=== PATIENT | female | born 1975 | race Caucasian/White ===

== ENCOUNTER 2021-02-19 10:28 | Emergency (ER) | payer SELFPAY ==
[~2021-02-19] VITALS: Ht 157.5 cm; Wt 118.0 kg
[~2021-02-19 10:28] MED LIST: FENT1PAT90 TD; INSU100I13 SQ; SULF-143 PO
--- NOTE | 2021-02-19 10:50 | PHYS DOC ---
Past History Past Medical History: Diabetes Past Surgical History: , Hysterectomy, Tonsillectomy, Other Alcohol Use: Occasionally Drug Use: None Adult General HPI HPI Patient is a 45-year-old female complaining of extremity paresthesias, chest pain and generalized malaise. Reports this is a chronic issue, states it is happen with increased frequency over past 2 weeks to 1 month without any known inciting event, ingestion or major change in health. Nothing known makes better or worse. Patient denying any actual pain, just feeling anxious with occasional electric numbness in all extremities, inability to catch breath at times and feeling more tired and unmotivated than usual. She is well covered in outpatient setting with PCP and has had extensive work-up in the past involving MRI with and without of the head in cardiac testing all of which has been unrem arkable. She reports she is frustrated that she has not gotten answers, stating she will not leave ER today unless she gets answers order will need to be admitted. Here with mother who cites extensive family cardiac history, no personal cardiac history and patient, no history of passing out with activity, no illicit drug use Review of Systems Review of Systems Fourteen body systems of review of systems have been reviewed. See HPI for pertinent positives and negative responses, other tinoco all other systems are negative, non-pertinent or non-contributory Allergies Allergies Allergies Coded Allergies Type Severity Reaction Last Updated Verified No Known Drug Allergies 01/07/16 No Physical Exam Physical Exam Constitutional: Well developed, well nourished, no acute distress, non-toxic appearance. HENT: Normocephalic, atraumatic, bilateral external ears normal, oropharynx moist, no oral exudates, nose normal. Eyes: PERRLA, EOMI, conjunctiva normal, no discharge. Neck: Normal range of motion, no tenderness, supple, no stridor. Cardiovascular: Heart rate regular, sinus rhythm, no murmurs rubs or gallops Lungs & Thorax: Bilateral breath sounds clear to auscultation Abdomen: Bowel sounds normal, soft, no tenderness, no masses, no pulsatile masses. Nonsurgical abdomen, no peritoneal signs Skin: Warm, dry, no erythema, no rash. Back: No tenderness, no CVA tenderness. Extremities: No tenderness, no cyanosis, no clubbing, ROM intact, no edema. Neurologic: Alert and oriented X 3, cranial nerves II through XII intact, negative Romberg, negative [id number], negative Spurling test bilaterally, normal motor & sensory function, no focal deficits noted. Psychologic: Anxious affect and mood Current Patient Data Vital Signs Vital Signs Date Time Temp Pulse Resp B/P (MAP) Pulse Ox O2 Delivery O2 Flow Rate FiO2 02/19/21 11:11 98.1 100 18 176/92 (120) 98 Room Air Vital Signs Date Time Temp Pulse Resp B/P (MAP) Pulse Ox O2 Delivery O2 Flow Rate FiO2 02/19/21 11:11 98.1 100 18 176/92 (120) 98 Room Air Lab Results Laboratory Tests Test 02/19/21 11:02 Glucose (Fingerstick) 237 mg/dL Current Medications Medications (Trade) Dose Ordered Sig/Carlos Route PRN Reason Start Time Stop Time Status Last Admin Dose Admin Aspirin (Sindy Aspirin) 162 mg 1X ONCE PO 02/19/21 11:30 02/19/21 11:35 DC Aspirin (Aspirin Chewable) 162 mg 1X ONCE PO 02/19/21 11:45 02/19/21 11:46 DC 02/19/21 12:02 EKG EKG EKG ordered and interpreted by myself time as sinus rhythm at 91 bpm, unremarkable intervals, T wave inversion in lead I, no STEMI Radiology/Procedures Radiology/Procedures AP chest. HISTORY: Chest pain AP view was taken of the chest. Lungs are clear. Heart is normal in size. There is no pleural effusion. IMPRESSION: 1. No acute chest disease. Electronically signed by: Rc Emery MD (02/19/2021 11:19 AM) [id number] Heart Score C/O Chest Pain: Yes HEART Score for Chest Pain: HEART Score for Chest Pain Response (Comments) Value History Slighlty/Non-Suspicious 0 ECG Normal 0 Age < 45 0 Risk Factors 1 or 2 Risk Factors 1 Troponin < Normal Limit 0 Total 1 Risk Factors: Risk Factors: DM, Current or recent (<one month) smoker, HTN, HLP, family history of CAD, obesity. Risk Scores: Risk Factors: DM, Current or recent (<one month) smoker, HTN, HLP, family history of CAD, obesity. Course & Med Decision Making Course & Med Decision Making Discussed with the patient all findings and diagnostic testing. I discussed most likely diagnosis of anxiety about health versus noncardiac chest pain versus other likely not emergent/surgical pathology. I did disclose this might be an acute presentation of more concerning pathology but given duration of symptoms, this is unlikely. I reviewed heart and PERC score with patient, joint decision to defer any further diagnostic work-up in ER setting, patient understands there is no obvious need for admission to the hospital at present. As such, I stressed need for close outpatient follow-up to review today's ER visit. Strict return precautions were also discussed at length with good understanding by patient. Patient voiced understanding and agreement with the plan. Patient knows to come back for repeat evaluation if concerning signs or symptoms present prior to outpatient follow-up. Hemodynamically stable, ambulatory and well-appearing at time of disposition. Dragon Disclaimer Dragon Disclaimer This electronic medical record was generated, in whole or in part, using a voice recognition dictation system. PERC Rule for PE PERC Rule for PE Response (Comments) Value Age > 50: No 0 HR > 100: No 0 Sa02 on room air <95%: No 0 Unilateral leg swelling: No 0 Hemoptysis: No 0 Recent surgery or trauma: No 0 Prior PE or DVT: No 0 Hormone use: No 0 Total 0 Departure Departure: Impression: Primary Impression: Chest pain Additional Impression: Paresthesia and pain of both upper extremities Disposition: HOME / SELF CARE / HOMELESS Condition: STABLE Referrals: SOY YOUNG MD (PCP) Additional Instructions: You were seen for chest pain and paresthesias. Your workup did not show any acute abnormalities today, but does not indicate that you do not have underlying cardiovascular disease or other concerning neurologic abnormalities. You do need to follow up with your primary doctor and as discussed, would be beneficial for you to see a neurologist and continue outpatient work-up with your communicable disease specialist for bilateral upper extremities. You should return to the ED if you develop worsening chest pain, shortness of breath, fever, abnormal sweating, leg swelling, or any other new or concerning symptoms. It was a pleasure to take care of you and I wish you the best going forward Problem Qualifiers PAMELA WASHINGTON DO Feb 19, 2021 10:50
--- NOTE | 2021-02-19 11:05 | EKG ---
[address] [address] Test Date: 2021-02-19 Test Time: 10:41:43 Pat Name: JASON RECINOS Department: Room: Gender: F Counsel: EDUARDO : 1975 Requested By: PAMELA WASHINGTON Order Number: [id number] Reading MD: Measurements Intervals [place] Rate: 91 P: 34 IA: 152 QRS: 38 QRSD: 76 T: 142 QT: 344 QTc: 425 Interpretive Statements SINUS RHYTHM R-S TRANSITION ZONE IN V LEADS DISPLACED TO THE LEFT T ABNORMALITY IN HIGH LATERAL LEADS ABNORMAL ECG RI6.02 No previous ECG available for comparison
[2021-02-19 11:11] VITALS: BP 176/92
--- NOTE | 2021-02-19 11:22 | RAD ---
AP chest. HISTORY: Chest pain AP view was taken of the chest. Lungs are clear. Heart is normal in size. There is no pleural effusio n. IMPRESSION: 1. No acute chest disease. Electronically signed by: Rc Emery MD (02/19/2021 11:19 AM) [id number]
[2021-02-19] MEDS ORDERED: ASPIRIN 325 MG TABLET PO ONE (11:30)
[2021-02-19 11:38] LABS: BASO % 1 % (0-3); EOS # 0.2 x10^3/uL (0.0-0.7); EOS % 2 % (0-3); HEMATOCRIT 41.5 % (36.0-47.0); HEMOGLOBIN 14.3 g/dL (12.0-15.5); LYMPH % 34 % (24-48); MEAN CORPUSCULAR HEMOGLOBIN 29 pg (25-35); MEAN CORPUSCULAR HGB CONC 35 g/dL (31-37); MEAN CORPUSCULAR VOLUME 84 fL (79-100); MONO # 0.5 x10^3/uL (0.0-1.1); MONO % 6 % (0-9); NEUT # 5.2 x10^3uL (1.8-7.7); NEUT % 58 % (31-73); PLATELET COUNT 278 x10^3/uL (140-400); RED BLOOD COUNT 4.92 x10^6/uL (3.50-5.40); RED CELL DISTRIBUTION WIDTH 13.8 % (11.5-14.5)
[2021-02-19] MEDS ORDERED: ASPIRIN CHEWABLE 81 MG TABLET. PO ONE (11:45)
[2021-02-19 11:47] LABS: CALCIUM 8.9 mg/dL (8.5-10.1); CREATININE 0.7 mg/dL (0.6-1.0); GFR 90.5; POTASSIUM 4.3 mmol/L (3.5-5.1)
[2021-02-19 11:54] LABS: ALBUMIN 3.3 g/dL (3.4-5.0); TOTAL BILIRUBIN 0.3 mg/dL (0.2-1.0); TOTAL PROTEIN 6.7 g/dL (6.4-8.2)
== END 2021-02-19 12:10 | disposition home or self-care (01) ==
LOC: ER 10:28
DX: R07.89 Other chest pain (principal); R20.2 Paresthesia of skin; E11.9 Type 2 diabetes mellitus without complications; Z90.710 Acquired absence of both cervix and uterus
CPT/HCPCS: 36415; 71045; 80053; 82947; 84484; 85025; 93005; 99285-25

== ENCOUNTER 2021-03-10 18:27 | Emergency (ER) | payer SELFPAY ==
[~2021-03-10] VITALS: Ht 160 cm; Wt 98.0 kg
[2021-03-10] MEDS ORDERED: IOHEXOL 300 MG/ML 75 ML VIAL. IV ONE (19:15)
[2021-03-10 19:22] LABS: BASO # 0.1 x10^3/uL (0.0-0.2); BASO % 1 % (0-3); EOS # 0.2 x10^3/uL (0.0-0.7); EOS % 1 % (0-3); HEMOGLOBIN 14.6 g/dL (12.0-15.5); LYMPH # 3.6 x10^3/uL (1.0-4.8); LYMPH % 23 % (24-48); MEAN CORPUSCULAR HEMOGLOBIN 29 pg (25-35); MEAN CORPUSCULAR HGB CONC 34 g/dL (31-37); MEAN CORPUSCULAR VOLUME 85 fL (79-100); MONO % 7 % (0-9); NEUT # 10.4 x10^3uL (1.8-7.7); NEUT % 68 % (31-73); PLATELET COUNT 254 x10^3/uL (140-400); RED BLOOD COUNT 5.08 x10^6/uL (3.50-5.40); RED CELL DISTRIBUTION WIDTH 13.8 % (11.5-14.5); WHITE BLOOD COUNT 15.3 x10^3/uL (4.0-11.0)
[2021-03-10 19:46] LABS: CALCIUM 9.3 mg/dL (8.5-10.1); CREATININE 0.7 mg/dL (0.6-1.0); GFR 90.5
[2021-03-10 19:52] LABS: ALBUMIN 3.4 g/dL (3.4-5.0); DIRECT BILIRUBIN 0.1 mg/dL (0.0-0.2); MAGNESIUM 1.6 mg/dL (1.8-2.4); PHOSPHORUS 4.2 mg/dL (2.6-4.7); TOTAL BILIRUBIN 0.4 mg/dL (0.2-1.0); TOTAL PROTEIN 6.8 g/dL (6.4-8.2)
[2021-03-10] MEDS ORDERED: INSULIN REGULAR 100 UNIT/ML 3ML VIAL. IV ONE (20:00)
[2021-03-10 20:11] LABS: % EOS 1 % (0-5); % LYMPHS 20 % (24-48); % MONOS 6 % (0-10); % SEGS 73 % (35-66)
[2021-03-10 20:12] LABS: PLT ESTIMATE ADEQUATE (ADEQUATE)
--- NOTE | 2021-03-10 20:34 | PHYS DOC ---
Past History Past Medical History: Diabetes (DES MAHONEY APRN) Past Surgical History: Hysterectomy (DES MAHONEY APRN) Alcohol Use: None Drug Use: None (DES MAHONEY APRN) Adult General Chief Complaint Chief Complaint: NEURO SYMPTOMS/DEFICITS HPI HPI Patient is a 45-year-old female who presents to the emergency department with chief complaint of off-and-on slurred speech, off and on ear pains the left more than the right, and off-and-on tremors for the past several months. Patient states when her tremor episodes happen it feels as if her throat is closing off. Patient states that it was recommended she see a neurologist however states she does not have insurance so she cannot afford to see a neurologist. Patient states that she seen her primary care provider yesterday and labs were drawn and she was told that everything looked okay however labs were pending focusing on an endocrine disorder. Patient reports taking Cymbalta and gabapentin at home, reports she takes NovoLog at each meal and Lantus twice a day. Patient reports her blood sugar prior to arrival was 283. Patient reports that her neurological symptoms seem to be getting worse as the time passes. Patient denies chest pains, shortness of breath, chest pains, abdominal pain, rashes of her skin, increased thirst or increased urination, denies any trauma. Patient denies recent fever or chills. (DES MAHONEY APRN) Review of Systems Review of Systems 14 body systems of review of systems have been reviewed. See HPI for pertinent positives and negative responses, otherwise all other systems are negative, nonpertinent or noncontributory. (DES MAHONEY APRN) Current Medications Current Medications Current Medications Medications (Trade) Dose Ordered Sig/Carlos Start Time Stop Time Status Last Admin Dose Admin Insulin Human Regular (HumuLIN R VIAL) 10 unit 1X ONCE 03/10/21 20:00 03/10/21 20:17 DC 03/10/21 20:23 10 UNIT Iohexol (Omnipaque 300 Mg/ml) 75 ml 1X ONCE 03/10/21 19:15 03/10/21 19:22 DC 03/10/21 20:19 75 ML Lorazepam (Ativan Inj) 1 mg 1X ONCE 03/10/21 19:15 03/10/21 19:22 DC 03/10/21 19:16 1 MG (DES MAHONEY APRN) Allergies Allergies Allergies Coded Allergies Type Severity Reaction Last Updated Verified No Known Drug Allergies 01/07/16 No (DES MAHONEY APRN) Physical Exam Physical Exam Constitutional: Well developed, well nourished, no acute distress, non-toxic appearance. 45-year-old female having tremor-like movements during physical exam. HENT: Normocephalic, atraumatic, bilateral external ears normal, oropharynx moist, no oral exudates, nose normal. Bilateral TMs intact with scarring. No drooling, no trismus. No lymphadenopathy of the head or neck appreciated. Eyes: PERRLA, EOMI, conjunctiva normal, no discharge. Pupils 3 mm. Neck: Normal range of motion, no tenderness, supple, no stridor. No nuchal rigidity. Cardiovascular:Heart rate regular rhythm, no murmur, heart sounds S1-S2 consultation. Lungs & Thorax: Bilateral breath sounds clear to auscultation, no adventitious lung sounds appreciated. Abdomen: Bowel sounds normal, soft, no tenderness, no masses, no pulsatile masses. Skin: Warm, dry, no erythema, no rash. Back: No tenderness, no CVA tenderness. Extremities: No tenderness, no cyanosis, no clubbing, ROM intact, no edema. Neurologic: Alert and oriented X 3, normal motor function, normal sensory function, no focal deficits noted. Patient having intermittent rhythmic tremors with changes to jerking type motion of upper extremities, no tremors or abnormal jerking motion of lower extremities. Cerebellar exam intact Psychologic: Affect normal, judgement normal, mood normal. (DES MAHONEY APRN) Current Patient Data Vital Signs Vital Signs Date Time Temp Pulse Resp B/P (MAP) Pulse Ox O2 Delivery O2 Flow Rate FiO2 03/10/21 19:14 96 18 153/96 (115) Room Air 03/10/21 18:31 98.9 97 Lab Results Laboratory Tests Test 03/10/21 18:45 03/10/21 19:20 White Blood Count 15.3 x10^3/uL (4.0-11.0) H Red Blood Count 5.08 x10^6/uL (3.50-5.40) Hemoglobin 14.6 g/dL (12.0-15.5) Hematocrit 43.0 % (36.0-47.0) Mean Corpuscular Volume 85 fL (79-100) Mean Corpuscular Hemoglobin 29 pg (25-35) Mean Corpuscular Hemoglobin Concent 34 g/dL (31-37) Red Cell Distribution Width 13.8 % (11.5-14.5) Platelet Count 254 x10^3/uL (140-400) Neutrophils (%) (Auto) 68 % (31-73) Lymphocytes (%) (Auto) 23 % (24-48) L Monocytes (%) (Auto) 7 % (0-9) Eosinophils (%) (Auto) 1 % (0-3) Basophils (%) (Auto) 1 % (0-3) Neutrophils # (Auto) 10.4 x10^3uL (1.8-7.7) H Lymphocytes # (Auto) 3.6 x10^3/uL (1.0-4.8) Monocytes # (Auto) 1.0 x10^3/uL (0.0-1.1) Eosinophils # (Auto) 0.2 x10^3/uL (0.0-0.7) Basophils # (Auto) 0.1 x10^3/uL (0.0-0.2) Segmented Neutrophils % 73 % (35-66) H Lymphocytes % 20 % (24-48) L Monocytes % 6 % (0-10) Eosinophils % 1 % (0-5) Platelet Estimate Adequate (ADEQUATE) Lactic Acid Level 1.4 mmol/L (0.4-2.0) Sodium Level 136 mmol/L (136-145) Potassium Level 4.0 mmol/L (3.5-5.1) Chloride Level 102 mmol/L (98-107) Carbon Dioxide Level 25 mmol/L (21-32) Anion Gap 9 (6-14) Blood Urea Nitrogen 15 mg/dL (7-20) Creatinine 0.7 mg/dL (0.6-1.0) Estimated GFR (Cockcroft-Gault) 90.5 BUN/Creatinine Ratio 21 (6-20) H Glucose Level 305 mg/dL (70-99) H Calcium Level 9.3 mg/dL (8.5-10.1) Phosphorus Level 4.2 mg/dL (2.6-4.7) Magnesium Level 1.6 mg/dL (1.8-2.4) L Total Bilirubin 0.4 mg/dL (0.2-1.0) Direct Bilirubin 0.1 mg/dL (0.0-0.2) Aspartate Amino Transferase (AST) 13 U/L (15-37) L Alanine Aminotransferase (ALT) 21 U/L (14-59) Alkaline Phosphatase 137 U/L (46-116) H Total Protein 6.8 g/dL (6.4-8.2) Albumin 3.4 g/dL (3.4-5.0) Albumin/Globulin Ratio 1.0 (1.0-1.7) Acetone Level Neg (NEG) (DES MAHONEY APRN) EKG EKG [] (DES MAHONEY APRN) Radiology/Procedures Radiology/Procedures PATIENT: JASON RECINOS EACCOUNT: [id number] : 1975 LOCATION: ER AGE: 45 SEX: F EXAM STATUS: REG ER ORD. PHYSICIAN: DES MAHONEY APRN REASON: OMNI 300, 75ML IV. Sensation of throat swelling PROCEDURE: CT SOFT TISSUE NECK W/CONTRAST EXAM: 1. CT HEAD WITHOUT CONTRAST. 2. CT NECK SOFT TISSUES WITH CONTRAST. HISTORY: Tremors, throat swelling. TECHNIQUE: Computed tomography of the head was performed without intravenous contrast. CT of the neck soft tissues was performed after the intravenous administration of iodinated contrast. One or more of the following individualized dose reduction techniques were utilized for this examination: 1. Automated exposure control. 2. Adjustment of the mA and/or kV according to patient size. 3. Use of iterative reconstruction technique. COMPARISON: None. FINDINGS: There is no intracranial hemorrhage. King-white differentiation is preserved. The ventricles are normal in size and position. There are small mucus retention cysts in both maxillary sinuses. The orbits are unremarkable. The temporal bones are unremarkable. The calvarium reveals no suspicious lesions. Limited images of the lung apices reveal no abnormality. The aortic arch is not included. Bone windows reveal no suspicious lesions. There is mild to moderate central canal stenosis at C5-C7. The parotid glands, submandibular glands and thyroid gland are unremarkable. There are no pathologically enlarged lymph nodes. There are no laryngeal or pharyngeal masses or edema. There is no retropharyngeal or parapharyngeal collection. IMPRESSION: 1. No acute intracranial findings. 2. No neck soft tissue collection or edema. Electronically signed by: Tammy Griffiths MD (03/10/2021 8:41 PM) [id number] DICTATED AND SIGNED BY: NEYMAR GRIFFITHS MD DATE: 03/10/212035 CC: DES MAHONEY APRN; MAYLIN ACUNA; DES VARGAS DO ~MTH0 0 (DES MAHONEY APRN) Heart Score C/O Chest Pain: No Risk Factors: Risk Factors: DM, Current or recent (<one month) smoker, HTN, HLP, family history of CAD, obesity. Risk Scores: Risk Factors: DM, Current or recent (<one month) smoker, HTN, HLP, family history of CAD, obesity. (DES MAHONEY APRN) Course & Med Decision Making Course & Med Decision Making Pertinent Labs and Imaging studies reviewed. (See chart for details) 45-year-old female, vital signs reviewed, presents emergency department with concerns of tremors and slurred speech have been going on and off for several months. Patient states she was a seen yesterday by her primary care provider and was told to come to the emergency department if symptoms return. Physical examination concerning for neurological symptoms with a psychiatric component, patient did not make direct eye contact during physical examination, when attempted to move in front of patient's line of sight, patient would move eyes out of line of sight.. A CT head and soft tissue neck were ordered related to patient's chief complaints, labs were ordered. IV normal saline, 1 mg IV Ativan was given. Upon reevaluation of the patient, patient states that the Ativan helped her and her symptoms have resolved. The patient is no longer having any concerning neurological symptoms. We will await CT and lab results. The patient's white blood cell count is elevated. Upon reexamination of the patient discussing elevated white blood cell count, patient reveals that she does have an abscess near her vagina. Upon evaluation with female ED nurse, patient has fluctuant abscess on left side of mons pubis with central punctum, nondraining. See I&D note. Patient reports her last tetanus immunization was less than [address] unremarkable, patient's lab work unremarkable except for elevated white blood cell count most likely related to abscess. Will treat p.o. anti biotics Bactrim DS p.o. twice daily x7 days. Will give first dose in ER prior to discharge. Discussed with patient will prescribe 1/2 mg Ativan tablets to take up to 3 times a day as needed for returning of neurological symptoms. Strict follow-up precautions with primary care this week. Patient gave verbal understanding of discharge home instructions, strict follow- up with primary care, abscess care, packing care, return to ER precautions or concerns, patient was thankful and states she feels much better now and wishes to go home, patient was discharged home without incident. (DES MAHONEY APRN) Dragon Disclaimer Dragon Disclaimer This electronic medical record was generated, in whole or in part, using a voice recognition dictation system. (DES MAHONEY APRN) Incision and Drainage Indication: Abscess left side mons pubis Procedure: The patient was positioned appropriately and the skin over the incision site was prepped with povidone iodine. Local anesthesia was achieved with 3 cc 2% lidocaine without epinephrine. An incision was then made over the central punctum of abscess and approximately 3 cc of purulent material was expressed. Loculations were disrupted with forceps. The drainage cavity was then vigorously irrigated with 500 cc normal saline. The patients tetanus status up-to-date prior to today's visit in the emergency department, tetanus immunization not indicated. The abscess cavity was then packed with 1/4 inch packing gauze. The patient tolerated the procedure well. Complications: There were no complications. (DES MAHONEY APRN) Departure Departure: Impression: Primary Impression: Occasional tremors Additional Impression: Abscess Disposition: 01 HOME / SELF CARE / HOMELESS Condition: GOOD Referrals: MAYLIN ACUNA (PCP) Patient Instructions: Abscess Additional Instructions: You were seen today in the emergency department for extremity tremors and other neurological symptoms that resolved during your stay in the ER. You were given Ativan intravenously while you were here in the emergency department to help treat your symptoms, you had stated that this medication helped you tremendously. Your symptoms resolved spontaneously after this medication was given, however a CT of your head and neck were completed, these images were read by a radiologist who did not find any concerning findings. You did reveal that you had an abscess, this was drained in the emergency department today, you were started on an oral antibiotic that you will take twice a day for 7 days. I am also starting you on a low-dose of Ativan tablets to take if your neurological symptoms start to return. It is imperative that you follow-up with your primary care provider this week for reevaluation and to let them know if the Ativan tablets are working. As your primary care provider recommended, please secure an appointment with a neurologist soon. Please return to the emergency department for worsening symptoms or other concerns. EMERGENCY DEPARTMENT GENERAL DISCHARGE INSTRUCTIONS Thank you for coming to [facility] (ED) today and trusting us with you care. We trust that you had a positivie experience in our Emergency Department. If you wish to speak to the department management, you may call the director at [phone]. YOUR FOLLOW UP INSTRUCTIONS ARE FOLLOWS: 1. Do you have a private Doctor? If you do not have a private doctor, please ask for a resource list of physicians or clinics that may be able to assist you with follow up care. 2. The Emergency Physician has interpreted your x-rays. The X-Ray specialist will also review them. If there is a change in the findings, you will be notified in 48 hours when at all possible. 3. A lab test or culture has been done, your results will be reviewed and you will be notified if you need a change in treatment. ADDITIONAL INSTRUCTIONS AND INFORMATION: 1. Your care today has been supervised by a physician who is specially trained in emergency care. Many problems require more than one evaluation for a complete diagnosis and treatment. We recommend that you schedule your follow up appointment as recommended to ensure complete treatment of you illness or injury. If you are unable to obtain follow up care and continue to have a problem, or if your condition worsens, we recommend that you return to the ED. 2. We are not able to safely determine your condition over the phone nor are we able to give sound medical advice over the phone. For these safety reasons, if you call for medical advice we will ask you to come to the ED for further evaluation. 3. If you have any questions regarding these discharge instructions please call the ED at [phone]. SAFETY INFORMATION: In the interest of safety, wellness, and injury prevention; we encourage you to wear your sealbelt, if you smoke; quite smoking, and we encourage family to use a protective helmet for bicycling and other sporting events that present an increased risk for head injury. IF YOUR SYMPTOMS WORSEN OR NEW SYMPTOMS DEVELOP, OR YOU HAVE CONCERNS ABOUT YOUR CONDITION; OR IF YOUR CONDITION WORSENS WHILE YOU ARE WAITING FOR YOUR FOLLOW UP APPOINTMENT; EITHER CONTACT YOUR PRIMARY CARE DOCTOR, THE PHYSICIAN WHOSE NAME AND NUMBER YOU WERE GIVEN, OR RETURN TO THE ED IMMEDIATELY. Scripts Lorazepam (ATIVAN ) 0.5 Mg Tablet 0.5 MG PO PRN TID PRN for ANXIETY, #10 TAB 0 Refills Prov: DES MAHONEY APRN 03/10/21 Sulfamethoxazole/Trimethoprim (BACTRIM DS TABLET) 1 Each Tablet 1 TAB PO BID for skin infection for 7 Days, #14 TAB 0 Refills Prov: DES MAHONEY APRN 03/10/21 Attending Signature Attending Signature I have reviewed the PA/MEDICAL MANAGER's note and plan of care. I was available for consultation as needed during the patient's visit in the emergency department. I agree with the clinical impression, plan, and disposition. (DES VARGAS DO) Problem Qualifiers DES MAHONEY APRN Mar 10, 2021 20:34 DES VARGAS DO Mar 10, 2021 23:45
--- NOTE | 2021-03-10 20:43 | RAD ---
EXAM: 1. CT HEAD WITHOUT CONTRAST. 2. CT NECK SOFT TISSUES WITH CONTRAST. HISTORY: Tremors, throat swelling. TECHNIQUE: Computed tomography of the head was performed without intravenous contrast. CT of the neck soft tissues was performed after the intravenous administration of iodinated contrast. One or more o f the following individualized dose reduction techniques were utilized for this examination: 1. Automated exposure control. 2. Adjustment of the mA and/or kV according to patient size. 3. Use of iterative reconstruction technique. COMPARISON: None. FINDINGS: There is no intracranial hemorrhage. King-white differentiation is preserved. The ventricle s are normal in size and position. There are small mucus retention cysts in both maxillary sinuses. The orbits are unremarkable. The tem poral bones are unremarkable. The calvarium reveals no suspicious lesions. Limited images of the lung apices reveal no abnormality. The aortic arch is not included. Bone window s reveal no suspicious lesions. There is mild to moderate central canal stenosis at C5-C7. The parotid glands, submandibular glands and thyroid gland are unremarkable. There are no pathologica lly enlarged lymph nodes. There are no laryngeal or pharyngeal masses or edema. There is no retropharyngeal or parapharyngeal c ollection. IMPRESSION: 1. No acute intracranial findings. 2. No neck soft tissue collection or edema. Electronically signed by: Tammy Griffiths MD (03/10/2021 8:41 PM) JOSH
[2021-03-10] MEDS ORDERED: LIDOCAINE 2% 20 ML VIAL. IJ ONE (20:45)
[2021-03-10 21:20] LABS: BACTERIA,URINE 0 /HPF (0-FEW); BILIRUBIN,URINE NEG (NEG); CLARITY,URINE CLEAR; COLOR,URINE YELLOW; GLUCOSE,URINE >=1000 mg/dL (NEG); NITRITE,URINE NEG (NEG); RBC,URINE 0 /HPF (0-2); SQUAMOUS EPITHELIAL CELL,UR MOD /LPF; UROBILINOGEN,URINE 0.2 mg/dL (0.2 mg/dL); WBC,URINE OCC /HPF (0-4)
[2021-03-10] MEDS ORDERED: SULF1TAB24 PO (21:43)
[2021-03-10] MEDS ORDERED: LORA0.5T21 PO (21:43)
[2021-03-10 21:44] VITALS: BP 121/84
[2021-03-10] MEDS ORDERED: SMZ/TMP 800/160MG TABLET. PO ONE (22:00)
== END 2021-03-10 21:57 | disposition home or self-care (01) ==
LOC: ER 18:27
DX: L02.215 Cutaneous abscess of perineum (principal); G25.2 Other specified forms of tremor; H92.02 Otalgia, left ear; E11.9 Type 2 diabetes mellitus without complications
CPT/HCPCS: 36415; 56405; 70450; 70491; 80053; 80076; 81001; 82010; 83605; 83735; 84100; 84443; 85007; 85025; 87040; 87070; 96374; 96375; 99285; J1815; J2060; Q9967

== ENCOUNTER 2022-01-25 10:31 | Emergency (ER) | payer MEDICAID ==
[~2022-01-25] VITALS: Ht 160 cm; Wt 112.8 kg
[~2022-01-25 10:31] MED LIST changes: +LORA0.5T21 PO; +SULF1TAB24 PO
[2022-01-25] MEDS ORDERED: MIDAZOLAM HCL PF 5 MG/5 ML VIAL. ONE (10:45)
--- NOTE | 2022-01-25 10:56 | PHYS DOC ---
Past History Past Medical History: Diabetes Additional Past Medical Histor: unable to assess Past Surgical History: Hysterectomy, Other Additional Past Surgical Histo: Unable to fully assess Alcohol Use: None Drug Use: None Adult General Chief Complaint Chief Complaint: ALTERED MENTAL STATUS HPI HPI Patient is a 46 year old female who presents for evaluation of altered mental status. Family brought patient to the emergency department due to concern for seizure. Symptoms started shortly prior to arrival. Patient reportedly has history of seizure disorder and is on daily Valium. Patient unable to provide any history at this time as she is moaning and writhing in the emergency cot. Further information limited at this time. No reported injuries or fall. Review of Systems Review of Systems Unable to assess due to altered mental status and patient providing no verbal responses. All other systems were reviewed and found to be within normal limits, except as documented in this note. Current Medications Current Medications Current Medications Medications (Trade) Dose Ordered Sig/Carlos Start Time Stop Time Status Last Admin Dose Admin Midazolam HCl (Versed) 5 mg STK-MED ONCE 01/25/22 10:45 01/25/22 10:46 DC Allergies Allergies Allergies Coded Allergies Type Severity Reaction Last Updated Verified No Known Drug Allergies 01/07/16 No Physical Exam Physical Exam Constitutional: Patient moaning and writhing in bed, opens eyes to voice, no verbal responses, afebrile. [] HENT: Normocephalic, atraumatic, bilateral external ears normal, oropharynx moist, no oral exudates, nose normal. [] Eyes: PERRLA, EOMI, conjunctiva normal, no discharge. [] Neck: Normal range of motion, no tenderness, supple, no stridor. [] Cardiovascular:Heart rate regular rhythm, no murmur [] Lungs & Thorax: Bilateral breath sounds clear to auscultation [] Abdomen: Bowel sounds normal, soft, no tenderness, no masses, no pulsatile masses. [] Skin: Warm, dry, no erythema, no rash. [] Back: No tenderness, no CVA tenderness. [] Extremities: No tenderness, no cyanosis, no clubbing, ROM intact, no edema. [] Neurologic: GCS 11, moaning and writhing in bed, moves all extremities purposefully, localizes pain, avoids direct eye contact when I examine in patient's direct field of vision. [] Current Patient Data Vital Signs Vital Signs Date Time Temp Pulse Resp B/P (MAP) Pulse Ox O2 Delivery O2 Flow Rate FiO2 01/25/22 10:34 98.4 87 18 129/106 (114) 98 Room Air Lab Results Laboratory Tests Test 01/25/22 10:35 Glucose (Fingerstick) 332 mg/dL (70-99) H EKG EKG Interpreted by me: Interpretation is limited by artifact, heart rate 85, sinus rhythm, normal axis, no acute ST/T wave abnormalities present [] Radiology/Procedures Radiology/Procedures [address] [address] IMAGING REPORT Signed PATIENT: JASON RECINOS EACCOUNT: [id number] : 1975 LOCATION: ER AGE: 46 SEX: F EXAM STATUS: REG ER ORD. PHYSICIAN: SAW CARSON MD REASON: possible seizure, altered mental status PROCEDURE: CT HEAD WO CONTRAST EXAMINATION: CT HEAD/BRAIN WO CLINICAL HISTORY: Possible seizure, altered mental status. TECHNIQUE: Serial axial images without IV contrast were obtained from the vertex to the foramen magnum. CT Dose Reduction Employed: One or more of the following individualized dose reduction techniques were utilized for this examination: 1. Automated exposure control 2. Adjustment of the mA and/or kV according to patient size 3. Use of iterative reconstruction technique. COMPARISON: None FINDINGS: Acute Change: No evidence of an acute infarct or other acute parenchymal process. Hemorrhage: No evidence of acute intracranial hemorrhage. Mass Lesion/Mass Effect: No evidence of intracranial mass or extraaxial fluid collection. No significant mass effect. Parenchyma: Parenchyma within normal limits for age. Ventricles: Ventricles within normal limits for age. Paranasal Sinuses and Skull Base: Small mucous retention cysts/polyps in the bilateral maxillary sinuses. Visualized skull base and soft tissues unremarkable. IMPRESSION: No evidence of acute intracranial abnormality. Electronically signed by: Blu Rodríguez DO (01/25/2022 11:08 AM) [facility] DICTATED AND SIGNED BY: BLU RODRÍGUEZ DO DATE: 01/25/22 1100 CC: MAYLIN ACUNA; SAW CARSON MD ~ [] Heart Score C/O Chest Pain: No Risk Factors: Risk Factors: DM, Current or recent (<one month) smoker, HTN, HLP, family history of CAD, obesity. Risk Scores: Risk Factors: DM, Current or recent (<one month) smoker, HTN, HLP, family history of CAD, obesity. Course & Med Decision Making Course & Med Decision Making Pertinent Labs and Imaging studies reviewed. (See chart for details) Upon initial presentation, the patient appeared to be in an altered state though her movements were purposeful. Due to psychomotor agitation, the patient was administered Versed 1 mg IV. Shortly after administration, the patient's psychomotor agitation called and the patient was able to converse freely. CT imaging was performed and showed no acute abnormalities. Blood work was reviewed and also unremarkable. The patient refuses to provide a urine sample in the emergency department despite administration of IV fluids. Mother arrived to the emergency department. She was able to confirm that the patient recently ran out of her Valium prescription 3 days ago. Her primary care provider was able to refill this prescription but it has not been yet picked up. The patient feels that this is likely why she started having the reported symptoms earlier today. She is scheduled to have an EEG performed at Dr. Hawthorne's office tomorrow and is actually scheduled to follow-up with her primary care provider later th is afternoon. Patient was administered one-time oral dose of Valium 10 mg p.o. Patient appears well and in no acute distress and symptoms have fully resolved. Symptoms do not appear to be classic for epileptic seizure disorder. Mother also confirms that patient is currently being treated for urinary tract infection as she gave a prior urine sample to her primary care provider. The patient is appropriate for discharge home. Advised to fill Valium prescription and resume as prescribed. Recommend return to the emergency department for any worsening symptoms. Patient and mother voiced understanding and in agreement with treatment plan. [] Dragon Disclaimer Dragon Disclaimer This electronic medical record was generated, in whole or in part, using a voice recognition dictation system. Departure Departure: Impression: Primary Impression: Psychomotor agitation Additional Impressions: Altered mental status Withdrawal from benzodiazepine Disposition: 01 HOME / SELF CARE / HOMELESS Condition: IMPROVED Referrals: MAYLIN ACNUA (PCP) Patient Instructions: Benzodiazepine Withdrawal Additional Instructions: Follow-up with your primary care provider today and follow-up with Dr. Hawthorne tomorrow as scheduled. Be sure to fill your Valium prescription as prescribed by your provider and resume today. Return to the emergency department for any worsening symptoms. Problem Qualifiers Additional Impressions: Altered mental status Altered mental status type: transient alteration of awareness Qualified Codes: R40.4 - Transient alteration of awareness Withdrawal from benzodiazepine Complication of substance-induced condition: uncomplicated Qualified Codes: F13.230 - Sedative, hypnotic or anxiolytic dependence with withdrawal, uncomplicated SAW CARSON MD January 25, 2022 10:56
[2022-01-25 11:02] LABS: BASO % 0 % (0-3); EOS # 0.1 x10^3/uL (0.0-0.7); EOS % 1 % (0-3); HEMATOCRIT 43.4 % (36.0-47.0); HEMOGLOBIN 14.9 g/dL (12.0-15.5); LYMPH # 3.2 x10^3/uL (1.0-4.8); LYMPH % 30 % (24-48); MEAN CORPUSCULAR HEMOGLOBIN 28 pg (25-35); MEAN CORPUSCULAR HGB CONC 34 g/dL (31-37); MEAN CORPUSCULAR VOLUME 83 fL (79-100); MONO # 0.5 x10^3/uL (0.0-1.1); MONO % 5 % (0-9); NEUT # 6.8 x10^3uL (1.8-7.7); NEUT % 64 % (31-73); PLATELET COUNT 247 x10^3/uL (140-400); RED BLOOD COUNT 5.25 x10^6/uL (3.50-5.40); RED CELL DISTRIBUTION WIDTH 15.2 % (11.5-14.5); WHITE BLOOD COUNT 10.8 x10^3/uL (4.0-11.0)
--- NOTE | 2022-01-25 11:10 | RAD ---
EXAMINATION: CT HEAD/BRAIN WO CLINICAL HISTORY: Possible seizure, altered mental status. TECHNIQUE: Serial axial images without IV contrast were obtained from the vertex to the foramen magnu m. CT Dose Reduction Employed: One or more of the following individualized dose reduction techniques wer e utilized for this examination: 1. Automated exposure control 2. Adjustment of the mA and/or kV ac cording to patient size 3. Use of iterative reconstruction technique. COMPARISON: None FINDINGS: Acute Change: No evidence of an acute infarct or other acute parenchymal process. Hemorrhage: No evidence of acute intracranial hemorrhage. Mass Lesion/Mass Effect: No evidence of intracranial mass or extraaxial fluid collection. No signific ant mass effect. Parenchyma: Parenchyma within normal limits for age. Ventricles: Ventricles within normal limits for age. Paranasal Sinuses and Skull Base: Small mucous retention cysts/polyps in the bilateral maxillary sinu ses. Visualized skull base and soft tissues unremarkable. IMPRESSION: No evidence of acute intracranial abnormality. Electronically signed by: Blu Covington DO (01/25/2022 11:08 AM) [facility]
[2022-01-25 11:11] LABS: CALCIUM 9.1 mg/dL (8.5-10.1); CREATININE 0.7 mg/dL (0.6-1.0); GFR 90.1; POTASSIUM 4.6 mmol/L (3.5-5.1)
[2022-01-25] MEDS ORDERED: MIDAZOLAM HCL PF 5 MG/5 ML VIAL. IV ONE (11:15)
[2022-01-25 11:17] LABS: ALBUMIN 3.2 g/dL (3.4-5.0); ALBUMIN/GLOBULIN RATIO 0.8 (1.0-1.7); TOTAL BILIRUBIN 0.4 mg/dL (0.2-1.0)
[2022-01-25] MEDS ORDERED: diazePAM 5 MG TABLET. PO ONE (12:00)
[2022-01-25 12:37] VITALS: BP 112/71
[2022-01-25 13:32] LABS: BARBITURATES NEG (NEG); BENZODIAZEPINES POS (NEG); CANNABINOIDS POS (NEG); COCAINE NEG (NEG); METHADONE NEG (NEG); OPIATES NEG (NEG); PHENCYCLIDINE NEG (NEG)
[2022-01-25 13:34] LABS: AMPHETAMINE/METHAMPHETAMINE NEG (NEG)
[2022-01-25 13:45] LABS: CLARITY,URINE HAZY; COLOR,URINE YELLOW; GLUCOSE,URINE >=1000 mg/dL (NEG)
[2022-01-25 13:46] LABS: BACTERIA,URINE FEW /HPF (0-FEW); NITRITE,URINE NEG (NEG); RBC,URINE RARE /HPF (0-2); SQUAMOUS EPITHELIAL CELL,UR MANY /LPF; UROBILINOGEN,URINE 0.2 mg/dL (0.2 mg/dL); WBC,URINE RARE /HPF (0-4)
[2022-01-25 13:50] LABS: U PREG PATIENT NEGATIVE (NEG)
== END 2022-01-25 12:38 | disposition home or self-care (01) ==
LOC: ER 10:31
DX: F13.230 Sedative, hypnotic or anxiolytic dependence with withdrawal, uncomplicated (principal); R45.1 Restlessness and agitation; R40.4 Transient alteration of awareness; E11.9 Type 2 diabetes mellitus without complications; G40.909 Epilepsy, unspecified, not intractable, without status epilepticus
CPT/HCPCS: 36415; 70450; 80053; 80307; 81001; 81025; 82947; 85025; 93005; 96374; 99285; J2250